=== PATIENT | male | born 1995 | race Two or more races ===

== ENCOUNTER 2019-07-04 00:19 | Emergency (ER) | payer BC ==
[~2019-07-04] VITALS: Ht 170.2 cm; Wt 61.2 kg
[2019-07-04 00:30] VITALS: BP 99/77
--- NOTE | 2019-07-04 00:30 | NUR ---
PT BIBFRIEND C/O DIZZINESS/NAUSEA WITH 3 EPISODES OF VOMITING AT HOME S/P ETOH/MARIJUANA USE EARLIER TONIGHT. PT ON MONITOR IN BED 9 WITH FRIEND AT BEDSIDE. WILL CONTINUE TO MONITOR.
[2019-07-04] MEDS ORDERED: ONDANSETRON HCL/PF 4 MG/2 ML VIAL ONE (00:49)
[2019-07-04] MEDS ORDERED: ONDANSETRON HCL/PF 4 MG/2 ML VIAL IVP ONE (01:00)
[2019-07-04] MEDS ORDERED: IV NS 0.9% 1,000 ML BAG IV ONE (01:00)
--- NOTE | 2019-07-04 01:08 | NUR ---
BLOOD DRAWN AND GIVEN TO LAB
[2019-07-04 01:17] LABS: CALCIUM, SERUM 8.8 mg/dL (8.5-10.1); CREATININE 0.9 mg/dL (0.6-1.3); POTASSIUM 3.7 mmol/L (3.5-5.1)
[2019-07-04 01:26] LABS: BASOPHILS % (AUTO) 0.6 % (0.0-2.0); EOSINOPHILS % (AUTO) 1.7 % (0.0-6.0); HEMATOCRIT 44 % (39-51); HEMOGLOBIN 15.3 g/dL (13.5-17.5); LYMPHOCYTES # (AUTO) 2.3 /CMM (0.8-4.8); MEAN CORPUSCULAR HGB CONC 35 g/dl (31.0-36.0); MEAN CORPUSCULAR VOLUME 88 fL (80-96); MONOCYTES # (AUTO) 0.6 /CMM (0.1-1.30); MONOCYTES % (AUTO) 7.8 % (2.0-12.0); NEUTROPHILS # (AUTO) 4.5 /CMM (1.8-8.9); NEUTROPHILS % (AUTO) 59.9 % (43.0-81.0); PLATELET COUNT (AUTO) 269 /CMM (150-450); RED BLOOD CELL COUNT(AUTO) 5.01 MIL/uL (4.5-6.0); WHITE BLOOD COUNT (AUTO) 7.5 K/uL (4.3-11.0)
--- NOTE | 2019-07-04 02:19 | NUR ---
IV removed. Catheter intact and site benign. Pressure and 4x4 applied to site. No bleeding noted.Patient discharged to home in stable condition. Written and verbal after care instructions given. Patient verbalizes understanding of instruction.PT AMBULATORY WITH STEADY GAIT,.
== END 2019-07-04 02:20 | disposition home or self-care (01) ==
LOC: ER 00:27
DX: F12.10 Cannabis abuse, uncomplicated (principal); F41.9 Anxiety disorder, unspecified; R11.2 Nausea with vomiting, unspecified; Z60.2 Problems related to living alone
CPT/HCPCS: 36415; 80048; 85025; 96361; 96374; 99283; J2405; J7030